=== PATIENT | male | born 1955 | race Caucasian/White ===

== ENCOUNTER 2024-04-13 07:38 | Day surgery (SDC) | payer MEDICARE, OTHER, SELFPAY ==
--- NOTE | 2024-03-31 08:05 | EKG12_ITS ---
Test Reason : PREOP Blood Pressure : */* mmHG Vent. Rate : 59 BPM Atrial Rate : 59 BPM P-R Int : 176 ms QRS Dur : 102 ms QT Int : 426 ms P-R-T Axes : 67 -68 -18 degrees QTcB Int : 421 ms Sinus bradycardia Left axis deviation T wave abnormality, consider lateral ischemia Abnormal ECG Confirmed by Turner Carrera ([id number]), news copy editor SHERRILL DOHERTY ([id number]) on 03/31/2024 12:59:59 PM Referred By: Adrian Mullen Confirmed By: Turner Carrera
[2024-03-31 09:09] LABS: Hematocrit 44.5 % (40-54); Hemoglobin 14.7 g/dL (13.0-16.5); Mean Corpuscular Hgb 29.2 pg (27.0-32.0); Mean Corpuscular Volume 88.3 fL (80-94); Mean Platelet Vol. 8.9 fl (6.2-12.0); Platelet Count 208 K/mm3 (150-450); RBC Distribution Width CV 12.9 % (11.6-14.6); RBC Distribution Width SD 41.8 fl (35.1-43.9); Red Blood Count 5.04 M/mm3 (4.6-6.2); White Blood Count 4.7 K/mm3 (4.4-11.0)
[2024-03-31 09:27] LABS: ALB/GLOB Ratio 1.1 RATIO (0.9-2.4); AST(SGOT) 21 U/L (15-37); Alanine Aminotransfer ALT/SGPT 22 U/L (16-61); Albumin, Serum 3.9 g/dL (3.2-5.0); Alkaline Phosphatase 71 U/L (45-117); Anion Gap 6 (5-15); BUN 12 mg/dL (7-18); BUN/Creat Ratio 12.6 RATIO (10-20); Calcium,Total 9.2 mg/dL (8.5-10.1); Chloride 100 mmol/L (98-107); Creatinine, Serum 0.95 mg/dL (0.70-1.30); EST Glomerular Filtration Rate 83 mL/min (>60); Est Glom Filt Rate - Afr Amer 101 mL/min (>60); Globulin 3.4 g/dL (2.2-4.2); Glucose 122 mg/dL (74-106); Potassium 4.3 mmol/L (3.5-5.1); Protein, Total 7.3 g/dL (6.4-8.2); Sodium Level 132 mmol/L (136-145)
[2024-03-31 10:06] LABS: Partial Thromboplast Time 29.2 Seconds (24.1-36.2)
[2024-03-31 11:16] LABS: Prothrombin Time (Protime)PT. 13.5 SECONDS (11.7-14.9)
--- NOTE | 2024-04-06 14:59 | PAT.ANE_ITS ---
Pre-Assessment Diagnosis/Proposed Procedure Planned Operative Procedure(s): ROBOTIC LEFT INGUINAL WITH MESH Anesthesia History Anesthesia History - family resource management professor: Anesthesia History - family resource management professor Hx Hospitalization No 03/30/24 11:25 Any Problems With Anesthesia No 03/30/24 11:25 Cholinesterase deficiency No 03/30/24 11:25 You/Your Family Experience No 03/30/24 11:25 fever (hyperthermia) with Relationship Recent Exposure to Contagious Disease Does patient have nerve No 03/30/24 11:25 stimulator Patient instructed to have device shut off --Does patient have Pacemaker or ICD? When Was Last Pacemaker Check QUESTION #4 FULL TEXT: You/Your Family Experience fever (hyperthermia) with Anesthesia Last Oral Intake Last Oral intake: Last Oral Intake NPO since Meds taken in AM with sips of water? Meds patient instructed to take am of surgery PONV PONV - family resource management professor: PONV - family resource management professor Female No 03/30/24 11:25 HX of Motion Sickness No 03/30/24 11:25 HX of N/V After Surgery No 03/30/24 11:25 Non-Smoker Yes 03/30/24 11:25 Duration of Surgery greater No 03/30/24 11:25 than 60 minutes Number of Risk Factors 1 03/30/24 11:25 PONV Score Low Risk 03/30/24 11:25 Height & Weight Height & Weight: Anesthesia: Height & Weight Height 6 ft 2 in 11/15/23 08:59 Respiratory Assessment Respiratory Assessment - family resource management professor: Respiratory Tract Infection Hx - family resource management professor Hx Respiratory Tract Infection No 03/30/24 11:25 STOP Sleep Apnea STOP Sleep Apnea - family resource management professor: STOP Sleep Apnea - family resource management professor Hx Hypertension Yes: CONTROLLED WITH MEDS 03/30/24 11:25 Hx Sleep Apnea No 03/30/24 11:25 CPAP BIPAP Do you snore loudly (louder No 03/30/24 11:25 than talking or can be heard Do you often feel tired/ No 03/30/24 11:25 fatigued/ sleepy during daytime? Has anyone observed you stop No 03/30/24 11:25 breathing during sleep? STOP Results Negative 03/30/24 11:25 QUESTION #5 FULL TEXT : Do you snore loudly (louder than talking or can be heard through closed doors)? Tobacco Use History Tobacco Use History - family resource management professor: Tobacco Use History - family resource management professor Tobacco Use Smoking Status Never smoker 03/30/24 11:25 Hx Tobacco Use No 03/30/24 11:25 Years Smoking Packs Smoked per Day Smoking Cessation Date was within the last 15 years Hx Smoking Cessation Date Hx Smoking Cessation Counseling Hematologic Medial History Hematologic Hx - family resource management professor: Hematologic Medical Hx - medical care administrator Hx of Blood Transfusion No 03/30/24 11:25 Hx of Transfusion in last 3 No 03/30/24 11:25 Months Date of Last Transfusion (if within last 3 months) Ever experience any problems No 03/30/24 11:25 with transfusion(s)? Specify any problems Hx of Preganancy in last 3 N/A 03/30/24 11:25 Months Nurse Filling Out Transfusion DSCHRIBER 03/30/24 11:25 & Questions: Date: 03/30/24 03/30/24 11:25 Time: 11:26 03/30/24 11:25 Patient unable to answer at this time (ie. confused, unrespo /Reproduction History /Reproductive History - family resource management professor: /Reproductive Hx- family resource management professor Hx Now No 03/30/24 11:25 Gestational Age (in weeks): EDC: Hx Hx Para Hx Section SAB No 03/30/24 11:25 [facility] Medical History (Updated 03/30/24 @ 11:34 by Caitlin Han) Marijuana use Alcohol use Back pain Non-smoker History of pain when walking History of edema History of stress test Pain Constipation Arthritis Hyperlipidemia Benign hypertension Home Medications ?Medication ?Instructions ?Recorded ?Last Taken ?Type hydrochlorothiazide 12.5 mg tablet 12.5 mg PO DAILY 11/15/23 Unknown History losartan 100 mg tablet 100 mg PO QHS 11/15/23 Unknown History meloxicam 15 mg tablet 15 mg PO DAILY 11/15/23 Unknown History nifedipine 60 mg tablet,extended 60 mg PO DAILY 11/15/23 Unknown History release pregabalin 75 mg capsule 75 mg PO BID 11/15/23 Unknown History simvastatin 20 mg tablet 20 mg PO DAILY 11/15/23 Unknown History sildenafil 25 mg tablet (Viagra) 25 mg PO DAILY PRN sexual activity 03/30/24 Unknown History Allergy/AdvReac Type Severity Reaction Status Date / Time No Known Allergies Allergy Verified 03/30/24 11:19 Family History Mother Heart disease High cholesterol Father Hypertension Cancer Prostate Surgical History (Updated 03/30/24 @ 11:34 by Caitlin Han) Hx of colonoscopy Hx of LASIK History of Achilles tendon repair History of tonsillectomy and adenoidectomy History of inguinal hernia repair Social History (Updated 11/15/23 @ 08:58 by Caren Perez) Smoking Status: Never smoker alcohol intake: current alcohol intake frequency: 0-2 drinks per day Alcohol type: hard liquor substance use type: does not use Audit: Pertinent Findings Pertinent Findings EKG Perinent findings: 03/31/2024 - bradycardia 59 bpm T wave abnormality consider lateral ischemia no significant change from June 2021 EKG which showed lateral T wave abnormality workup was negative Stress test pertinent findings: 08/08/2021 normal perfusion study EF 69% 4 abnormal EKG EKG dated June 25, 2021 showed lateral T wave abnormality Recommendation Anesthesia Recommendation Anesthesia recommendation: OPTIMIZED for anesthesia
[2024-04-13] VITALS (8 sets, daily range): BP systolic 123–142; BP diastolic 76–89; PULSE 61–70; RESP 16; TEMP 36.1–36.4; O2SAT 95–100; BMI 23.2
[2024-04-13] MEDS: 0.9% Normal Saline (1000mL) 1,000 ML 15 ML IV (08:26)
--- NOTE | 2024-04-13 08:40 | PRE.ANES_ITS ---
ASA Classification* ASA Classification ASA Classification: 2 Assessment & Plan Anesthesia* Anesthesia Assessment Anesthesia Assessment: Discussed sedation and/or anesthesia options, risks, benefits, and alternatives with patient/parents/legal guardian/POA. Questions invited. The patient/parents/legal guardian/POA seems to understand and agrees to proceed with anesthesia plan. Reviewed the physical assessment, medical history, allergy history and patient home medications list prior to surgery/procedure/anesthetic and documented any changes. Performed airway and anesthesia risk assessments. Anesthesia Type Anesthesia Type: General History Source History Obtained from:: Patient and Chart Anesthesia Focused Assessment* Temperature: 97.6 F Pulse Rate: 61 Blood Pressure: 130/81 Respiratory Rate: 16 Pulse Ox: 98 Oxygen Delivery Method: Room Air Airway Assessment Mouth opens: >3 cm Mallampati Score: II Teeth Condition: Caps/Crowns (Patient has several crowns. He had a left lower crown fall out. Nothing else is loose.) Neck Range of motion (ROM): Full ROM Focused Labs Anesthesia Preop lab: CBC WBC 4.7 K/mm3 (4.4-11.0) 03/31/24 08:37 RBC 5.04 M/mm3 (4.6-6.2) 03/31/24 08:37 Hgb 14.7 g/dL (13.0-16.5) 03/31/24 08:37 Hct 44.5 % (40-54) 03/31/24 08:37 Plt Count 208 K/mm3 (150-450) 03/31/24 08:37 CHEMISTRY Potassium 4.3 mmol/L (3.5-5.1) 03/31/24 08:37 Sodium 132 mmol/L (136-145) L 03/31/24 08:37 BUN 12 mg/dL (7-18) 03/31/24 08:37 Creatinine 0.95 mg/dL (0.70-1.30) 03/31/24 08:37 Glucose 122 mg/dL (74-106) H 03/31/24 08:37 COAG PT 13.5 SECONDS (11.7-14.9) 03/31/24 08:37 Pre-Assessment Diagnosis/Proposed Procedure Planned Operative Procedure(s): ROBOTIC LEFT INGUINAL WITH MESH Anesthesia History Anesthesia History - lodging facilities manager: Anesthesia History - lodging facilities manager Hx Hospitalization No 03/30/24 11:25 Any Problems With Anesthesia No 03/30/24 11:25 Cholinesterase deficiency No 03/30/24 11:25 You/Your Family Experience No 03/30/24 11:25 fever (hyperthermia) with Relationship Recent Exposure to Contagious No 04/13/24 08:03 Disease Does patient have nerve No 03/30/24 11:25 stimulator Patient instructed to have device shut off --Does patient have Pacemaker No 04/13/24 08:03 or ICD? When Was Last Pacemaker Check QUESTION #4 FULL TEXT: You/Your Family Experience fever (hyperthermia) with Anesthesia Last Oral Intake Last Oral intake: Last Oral Intake NPO since 07:00 04/13/24 08:03 Meds taken in AM with sips of Yes 04/13/24 08:03 water? Meds patient instructed to take am of surgery Any additional information?: Yes NPO since: 06:30 PONV PONV - lodging facilities manager: PONV - lodging facilities manager Female No 03/30/24 11:25 HX of Motion Sickness No 03/30/24 11:25 HX of N/V After Surgery No 03/30/24 11:25 Non-Smoker Yes 03/30/24 11:25 Duration of Surgery greater No 03/30/24 11:25 than 60 minutes Number of Risk Factors 1 03/30/24 11:25 PONV Score Low Risk 03/30/24 11:25 Height & Weight Height & Weight: Anesthesia: Height & Weight Height 6 ft 2 in 04/13/24 08:03 Weight: 82 kg 04/13/24 08:03 Body Mass Index (BMI) 23.2 04/13/24 08:03 Respiratory Assessment Respiratory Assessment - lodging facilities manager: Respiratory Tract Infection Hx - lodging facilities manager Hx Respiratory Tract Infection No 03/30/24 11:25 STOP Sleep Apnea STOP Sleep Apnea - lodging facilities manager: STOP Sleep Apnea - lodging facilities manager Hx Hypertension Yes: CONTROLLED WITH MEDS 03/30/24 11:25 Hx Sleep Apnea No 03/30/24 11:25 CPAP BIPAP Do you snore loudly (louder No 03/30/24 11:25 than talking or can be heard Do you often feel tired/ No 03/30/24 11:25 fatigued/ sleepy during daytime? Has anyone observed you stop No 03/30/24 11:25 breathing during sleep? STOP Results Negative 03/30/24 11:25 QUESTION #5 FULL TEXT : Do you snore loudly (louder than talking or can be heard through closed doors)? Tobacco Use History Tobacco Use History - lodging facilities manager: Tobacco Use History - lodging facilities manager Tobacco Use Smoking Status Never smoker 03/30/24 11:25 Hx Tobacco Use No 03/30/24 11:25 Years Smoking Packs Smoked per Day Smoking Cessation Date was within the last 15 years Hx Smoking Cessation Date Hx Smoking Cessation Counseling Hematologic Medial History Hematologic Hx - lodging facilities manager: Hematologic Medical Hx - engineering documentation specialist Hx of Blood Transfusion No 03/30/24 11:25 Hx of Transfusion in last 3 No 03/30/24 11:25 Months Date of Last Transfusion (if within last 3 months) Ever experience any problems No 03/30/24 11:25 with transfusion(s)? Specify any problems Hx of Preganancy in last 3 N/A 03/30/24 11:25 Months Nurse Filling Out Transfusion DSCHRIBER 03/30/24 11:25 & Questions: Date: 03/30/24 03/30/24 11:25 Time: 11:26 03/30/24 11:25 Patient unable to answer at this time (ie. confused, unrespo /Reproduction History /Reproductive History - lodging facilities manager: /Reproductive Hx- lodging facilities manager Hx Now No 03/30/24 11:25 Gestational Age (in weeks): EDC: Hx Hx Para Hx Section SAB No 03/30/24 11:25 Active Medications Active Medications: Current Medications Generic Name Dose Route Start Last Admin Trade Name Freq PRN Reason Stop Dose Admin Cefazolin Sodium 2 gm/ N/A 20 mls @ 400 mls/hr 04/13/24 09:15 IV 04/13/24 09:17 PREOP ONE Sodium Chloride 1,000 mls @ 15 mls/hr 04/13/24 07:55 04/13/24 08:26 IV 04/18/24 21:14 15 mls/hr .Q48H PRIMITIVO Administration Protocol PFS Medical History (Updated 03/30/24 @ 11:34 by Caitlin Han) Marijuana use Alcohol use Back pain Non-smoker History of pain when walking History of edema History of stress test Pain Constipation Arthritis Hyperlipidemia Benign hypertension Home Medications ?Medication ?Instructions ?Recorded ?Last Taken ?Type hydrochlorothiazide 12.5 mg tablet 12.5 mg PO DAILY 11/15/23 Unknown History losartan 100 mg tablet 100 mg PO QHS 11/15/23 Unknown History meloxicam 15 mg tablet 15 mg PO DAILY 11/15/23 Unknown History nifedipine 60 mg tablet,extended 60 mg PO DAILY 11/15/23 04/13/24 07:00 History release pregabalin 75 mg capsule 75 mg PO BID 11/15/23 04/13/24 07:00 History simvastatin 20 mg tablet 20 mg PO DAILY 11/15/23 Unknown History sildenafil 25 mg tablet (Viagra) 25 mg PO DAILY PRN sexual activity 03/30/24 Unknown History Allergy/AdvReac Type Severity Reaction Status Date / Time No Known Allergies Allergy Verified 04/13/24 08:01 Family History Mother Heart disease High cholesterol Father Hypertension Cancer Prostate Surgical History (Updated 03/30/24 @ 11:34 by Caitlin Han) Hx of colonoscopy Hx of LASIK History of Achilles tendon repair History of tonsillectomy and adenoidectomy History of inguinal hernia repair Social History (Updated 11/15/23 @ 08:58 by Caren Perez) Smoking Status: Never smoker alcohol intake: current alcohol intake frequency: 0-2 drinks per day Alcohol type: hard liquor substance use type: does not use Review of Systems (Anesthesia) ROS Narrative System reviewed and no additional complaints, except as documented.
--- NOTE | 2024-04-13 08:48 | PCM.HP.BLA ---
History and Physical Date of Admission: 04/13/24 Intake Vital Signs 11/15/2407:59 Height 6 ft 2 in Weight: 178 lb 2 oz BMI 22.8 BP 125/80 H Blood Pressure Location Rt brachial Position Sitting Respiration 18 Pulse 69 Pulse Source Monitor Temp 97.2 F L Temp Source Temporal Pulse Oximetry (%) 98 Oxygen Delivery Method room air Intake Visit Reasons: HERNIA, SELF-REFERRING/TR Chief Complaint: Left inguinal hernia Radio Program Director Required: No Is patient in pain?: No Allergies No Known Allergies Allergy (Unverified 11/15/23 09:00) Medications ?Medication ?Instructions ?Recorded ?Confirmed ?Type hydrochlorothiazide 12.5 mg tablet 12.5 mg PO DAILY 11/15/23 11/15/23 History losartan 100 mg tablet 100 mg PO DAILY 11/15/23 11/15/23 History meloxicam 15 mg tablet 15 mg PO DAILY 11/15/23 11/15/23 History nifedipine 60 mg tablet,extended 60 mg PO DAILY 11/15/23 11/15/23 History release pregabalin 75 mg capsule 75 mg PO BID 11/15/23 11/15/23 History simvastatin 20 mg tablet 20 mg PO DAILY 11/15/23 11/15/23 History Have you fallen in the past year?: No PFSH Medical History (Updated 11/15/23 @ 09:[address] Adrian Mullen MD) Constipation Arthritis Benign hypertension Hyperlipidemia Surgical History (Updated 11/15/23 @ 08:57 by Caren Perez) Hx of LASIK History of Achilles tendon repair History of tonsillectomy and adenoidectomy History of inguinal hernia repair Family History Mother Heart disease High cholesterolFather Hypertension Cancer Prostate Social History (Updated 11/15/23 @ 08:58 by Caren Perez) Smoking Status: Former smoker alcohol intake: current alcohol intake frequency: 0-2 drinks per day Alcohol type: hard liquor substance use type: does not use HPI HPI HPI: Patient is a 68-year-old male here with left inguinal hernia. He says has been there for several months and it is growing larger. He said that he has had a right inguinal hernia repair in the past. This was done in an open fashion. He denies nausea or vomiting or fevers or chills. ROS General General: No weight change, appetite, fatigue, colon cancer, breast cancer or weakness HEENT HEENT: Yes eye surgery; No difficulty swallowing, eye injury, swollen glands or hoarseness Additional Details: Bilateral Lasik surgery Endo Endocrine: No thyroid disease, diabetes mellitus, thyroid cancer, Hair loss, heat intolerance or cold intolerance Skin Skin: No rash or changing moles Breast Breast: No left breast lump, right breast lump, nipple discharge, breast pain, abnormal mammogram, abnormal US or breast enlargement Musc Musculoskeletal: Yes arthritis; No back problems, rheumatoid arthritis, gout or joint pain Cardio Cardiovascular: Yes high blood pressure; No murmur, pacemaker, heart disease, atrial fibrillation, heart attack, heart stent, palpitations, shortness of breat with exertion or chest pain Psych Psychiatric: No depression, anxiety or hearing voices Resp Respiratory: No shortness of breath, No sleep apnea, No cough, No COPD, No asthma, No emphysema and No wheezing Gastro Gastrointestinal: No abdominal pain, No nausea or vomiting, No diarrhea, Yes constipation, No blood in stool, No acid reflux, No hemorrhoids, No ulcers, No gallbladder problem and No black,tarry stools Kaleb Hematologic: No blood thinners, No blood disorders, No bleeding, No anemia and No blood clots Neuro Neurologic: No system reviewed and no additional complaints, except as documented, No as per HPI, No abnormal gait, No abnormal hearing, No abnormal movements, No abnormal speech, No behavioral changes, No burning sensations, No confusion, No convulsions, No disequilibrium, No dizziness, No localized weakness, No frequent falls, No headache(s), No lack of coordination, No loss of vision, No memory loss, No numbness, No other visual disturbances, No radicular pain, No restless legs, No sensory deficit, No syncope, No tingling, No tremor(s), No weakness and No other Exam Const General: cooperative Orientation: alert and oriented x3 HENMT Head: normal to inspection Neck Neck: normal visual inspection and full ROM Chest Chest palpation & inspection: normal inspection of the chest Resp Effort & Inspection: normal respiratory effort Auscultation: clear to auscultation bilaterally Cardio Rate: regular rate Rhythm: regular rhythm GI Inspection: non-distended Palpation: soft, hernia indirect inguinal on the left and nontender Skin General: no rashes or lesions noted Neuro General: patient alert and patient oriented x3 Extrem General: full ROM Psych Appearance: grossly normal Mental Status: mental status grossly normal Assessment and Plan Assessment and Plan (1) Left inguinal hernia: Status: Acute Plan: The patient has a left inguinal hernia which is reducible. He has had a right inguinal hernia repair in the past. I discussed robotic assisted laparoscopic left inguinal hernia repair with mesh. I discussed the procedure in detail such as the risks of bleeding, infection, injury to the organ such as the bowel, bladder, ureter or blood supply to the testicle. I also discussed chronic groin pain. Patient understands and is willing to proceed. He will call back to schedule this during the winter. Adrian Mullen MD Pager: [facility] [address] [place] [address], [address] [place] [address] Office: I have examined the patient and the H&P has been reviewed. There are no clinical changes since date of exam.
[2024-04-13] MEDS: Cefazolin 2 GM in Syringe IV (09:28)
--- NOTE | 2024-04-13 10:06 | OP.PCM_ITS ---
Operative Report (Standard) Operative Information Date of Procedure: 04/13/24 Pre-Operative Diagnosis: Left inguinal hernia Post-Operative Diagnosis: Left inguinal hernia Surgery/Procedure Performed: Robotic assisted laparoscopic left inguinal hernia repair with mesh manager radiation: Yes Refrigeration Unit Repairer: Nenita Ortiz Tasks completed by first aid instructor: Opening and Closing Type of Anesthesia: General/Regional RN Documented Start/Stop Times: Operation Date: 04/13/24 09:15 Case Time Into Pre-Op 04/13/24 07:48 Out of Pre-Op 04/13/24 09:10 Anesthesia Start 04/13/24 09:14 Into Room 04/13/24 09:14 Procedure Start 04/13/24 09:39 Procedure Start Time: 09:39 Procedure Stop Time: 10:12 Select all DRAINS/GRAFTS/IMPLANTS that apply: Implanted device Implanted device details: ProGrip mesh Estimated Blood Loss: 5 Specimen collected: No Description of surgery: The patient was brought to the the operating room and general anesthesia was induced. The abdomen was prepped and draped in usual sterile fashion. A midline incision was made superior to the umbilicus and deepened to the fascia which was elevated and the Veress needle was placed into the abdomen. A drop test was performed and the abdomen was insufflated to 15 mmHg. The Veress needle was removed and a port was placed. The camera is placed into the abdomen and checked for injuries and there were none from entry. Patient was placed in steep Trendelenburg position. Under direct visualization an 8 mm port was placed in the left and right lateral sidewalls and then the robot was docked. The patient had some aberrant anatomy with a vessel crossing lateral to the hernia but it did not course like a normal epigastric. An area medial to this was incised with electrocautery scissors and then the hernia was dissected free and reduced. The hernia was very small. A ProGrip mesh was placed over the hernia that completely covered the hernia with good overlap. Next the peritoneum was reapproximated using a running 3 OV lock suture completely covering the mesh at the end of the case. The area was inspected and had good hemostasis. The robot was undocked and the abdomen was allowed to desufflate. The incisions were injected with local anesthetic and closed with interrupted 4- 0 Monocryl sutures. Steri-Strips and bandages were applied. Patient was chec ked at the end of the case and his scrotum which contain both testicles. Patient was taken to PACU in stable condition and tolerated the procedure well. Surgical Findings: Direct left inguinal hernia Complications Complications: No Admit VTE Documentation VTE Mechan Device Prophylaxis: SCD's
[2024-04-13] MEDS: Bupivacaine Mpf 0.5% 30 ML VIAL (10:07)
--- NOTE | 2024-04-13 10:09 | EX.PCM.DISCH ---
Discharge Instructions Procedure Hernia Diet Discharge Diet: Light diet - advance as tolerated Activity Discharge Activity: May Not Drive (for 2-3 days or while taking narcotic pain meds.) and May Shower (with the bandage in place 1-2 days after surgery.) Lifting Restrictions: 20 pounds for 4 weeks. Additional Activity Instructions:: Climbing stairs is fine, walking is encouraged. Sitting in bed may be uncomfortable. Sitting up using your lateral muscles (sitting up sideways) is usually more comfortable. Do not drive, work heavy equipment of sign legal documents for 24 hours. If your hernia repair was an inguinal repair, you may have scrotal swelling, an ice pack and/or athletic support can provide more comfort. Pain medications may cause nausea, you should typically eat light foods as you take your pain medications. Pain medications may also cause constipation. If you have difficulty with this, discuss with your doctor. Alternate ibuprofen and Tylenol for pain control, oxycodone for breakthrough pain Dressing / Incision Call your doctor if your incision/area has: Continuous Slow Oozing, Sudden Increased Bleeding, Increased Pain/ Swelling, Increased Redness and Foul Smelling Discharge Call your doctor if you observe: Fever of 101 or Higher Suture Line Care: Avoid Pulling/Pushing and Avoid Pinching/Bending Remove Dressing in: 2 days (Remove clear bandages in 2 days, remove Steri-Strips in 7 to 10 days.) Cleanse incision/area with: Soap & Water Follow Up Care Please Follow Up With: Adrian Mullen MD When: Please call to schedule 2 week follow up appointment. [phone] Test Results: Test results from this visit will be discussed in further detail at your follow-up appointment, if applicable. Discharge Plan Admission Attending Provider: Adrian Mullen Primary Care Provider: Renny Vazquez Instructions Print Language: Argentine Discharge Orders/Prescriptions Prescriptions: New oxycodone 5 mg Tablet 5 - 10 mg PO Q4H PRN PRN (Reason: Pain Score 4-10) 5 Days Qty: 10 0RF No Action meloxicam 15 mg tablet 15 mg PO DAILY losartan 100 mg tablet 100 mg PO QHS simvastatin 20 mg tablet 20 mg PO DAILY nifedipine 60 mg tablet extended release 60 mg PO DAILY hydrochlorothiazide 12.5 mg tablet 12.5 mg PO DAILY pregabalin 75 mg capsule 75 mg PO BID sildenafil [Viagra] 25 mg tablet 25 mg PO DAILY PRN (Reason: sexual activity) Rx Instructions: administer 30 minutes to 4 hours before activity Referrals / Follow Up: Renny Vazquez MD [Primary Care Provider] - Disposition Disposition (needs filled in before D/C Order can be placed): Home, Self Care
--- NOTE | 2024-04-13 10:22 | PCM.POST.ANE ---
Anesthesia: Postop Eval I Current Vital Signs Temperature: 96.9 F Pulse Rate: 66 Blood Pressure: 123/78 Respiratory Rate: 16 Pulse Ox: 99 Oxygen Delivery Method: Room Air Assessment Airway patent: Yes Spontaneous unlabored respirations: Yes Mental status: Awake and Calm nausea: No Vomiting: No Anesthesia Complication: No Fluid Hydration Crystalloid volume administer (ml): 900 Total IV fluid infused: 900 Progress Note Anesthesia document: Postop Eval 1 completed: Yes
[2024-04-13] MEDS: Acetaminophen 325 MG Tablet 650 MG PO (10:54)
--- NOTE | 2024-04-13 19:05 | POSTOPAN2_ITS ---
Anesthesia Postop Eval I Sum Postop Eval Completion status Anesthesia document: Postop Eval 1 completed: Yes Anesthesia Postop Eval I Summary Anesthesia Postop Eval I Summary: Anesthesia Postop Eval I: Assessment Summary Airway patent Yes 04/13/24 10:23 MILL BEAM FITTER.[email or web address] Spontaneous unlabored Yes 04/13/24 10:23 MILL BEAM FITTER.[email or web address] respirations Mental status Awake,Calm 04/13/24 10:23 MILL BEAM FITTER.GDOTT nausea No 04/13/24 10:23 MILL BEAM FITTER.GDOTT Vomiting No 04/13/24 10:23 MILL BEAM FITTER.GDOTT Anesthesia Postop Eval I: Fluid Summary Crystalloid volume administer 900 04/13/24 10:23 MILL BEAM FITTER.GDOTT (ml) Colloids volume administered ( ml) Blood Product volume administered (ml) Total IV fluid infused 900 04/13/24 10:23 MILL BEAM FITTER.GDOTT Anesthesia Postop Eval I: Summary Notes Anesthesia Complication No 04/13/24 10:23 MILL BEAM FITTER.GDOTT Anesthesia Complication Comment: Post-operative progress note Anesthesia: Postop Eval II Evaluation Mental status: Awake and Calm Pain Level: 1 nausea: No Vomiting: No Complications Anesthesia Complication: No
--- NOTE | 2024-04-13 19:05 | PCM.POSTANE2 ---
Anesthesia Postop Eval I Sum Postop Eval Completion status Anesthesia document: Postop Eval 1 completed: Yes Anesthesia Postop Eval I Summary Anesthesia Postop Eval I Summary: Anesthesia Postop Eval I: Assessment Summary Airway patent Yes 04/13/24 10:23 HADOOP ADMINISTRATOR.[email or web address] Spontaneous unlabored Yes 04/13/24 10:23 HADOOP ADMINISTRATOR.GDOTT respirations Mental status Awake,Calm 04/13/24 10:23 HADOOP ADMINISTRATOR.GDOTT nausea No 04/13/24 10:23 HADOOP ADMINISTRATOR.GDOTT Vomiting No 04/13/24 10:23 HADOOP ADMINISTRATOR.GDOTT Anesthesia Postop Eval I: Fluid Summary Crystalloid volume administer 900 04/13/24 10:23 HADOOP ADMINISTRATOR.GDOTT (ml) Colloids volume administered ( ml) Blood Product volume administered (ml) Total IV fluid infused 900 04/13/24 10:23 HADOOP ADMINISTRATOR.GDOTT Anesthesia Postop Eval I: Summary Notes Anesthesia Complication No 04/13/24 10:23 HADOOP ADMINISTRATOR.GDOTT Anesthesia Complication Comment: Post-operative progress note Anesthesia: Postop Eval II Evaluation Mental status: Awake and Calm Pain Level: 1 nausea: No Vomiting: No Complications Anesthesia Complication: No
== END 2024-04-13 12:55 | disposition home or self-care (01) ==
LOC: SDC 07:41 → ACINP 07:41 → AC 07:44
PROVIDERS: Anesthesiology; PCP Internal Medicine; Referring Provider Surgery; Visit Provider Surgery
PROC: 0YQ64ZZ Repair Left Inguinal Region, Percutaneous Endoscopic Approach (ICD-10-PCS; CPT 49650; principal; 2024-04-13 08:55)
DX: K40.90 Unilateral inguinal hernia, without obstruction or gangrene, not specified as recurrent (principal); E78.5 Hyperlipidemia, unspecified; Z87.891 Personal history of nicotine dependence; I10 Essential (primary) hypertension; Z79.899 Other long term (current) drug therapy
CPT/HCPCS: 49650; S2900; 00840; 36415; 80053; 85027; 85610; 85730; 93005; J2405